=== PATIENT | male | born 1940 | race Caucasian/White ===

== ENCOUNTER 2019-08-09 08:50 | Day surgery (SDC) | payer MEDICARE ==
[2019-08-09] MEDS ORDERED: PROPOFOL 10 MG/ML VIAL IV ONE (08:51)
[2019-08-09] MEDS ORDERED: LIDOCAINE 2% MDV (20MG/ML) 20ML VIAL IV ONE (08:51)
--- NOTE | 2019-08-12 08:20 | Operative Note ---
OPERATION: COLONOSCOPY with cold snare and cold forceps polypectomy. PREOPERATIVE DIAGNOSIS: Personal history of colon cancer. POSTOPERATIVE DIAGNOSES: 1. Normal and healthy appearing anastomosis. 2. Sigmoid diverticulosis. 3. Colon polyps. PROCEDURE: After informed consent was obtained from the patient, he was placed in the left lateral decubitus position in the endoscopy suite, sedated and monitored by the department of anesthesia. Digital rectal exam was unremarkable. A well-lubricated CY600XN colonoscope was inserted into the rectum and advanced to the candace-cecum/ileocolonic anastomosis. The anastomosis appeared unremarkable. There were 2 visible nani. There was also a 6 mm sessile polyp just distal to the anastomosis. This was removed with a cold snare and retrieved with minimal bleeding noted. The remainder of what is remaining of the ascending colon was unremarkable. There was a diminutive transverse colon polyp removed with a cold forceps. Remainder of the transverse colon and descending colon were unremarkable. The sigmoid colon did demonstrate scattered diverticula as well as a 3-4 mm sessile polyp which was removed with a cold forceps. The remainder of the sigmoid colon was unremarkable. Forward and J-turn views of the rectum and anorectum were unrevealing. The endoscope was straightened, the rectal ampulla deflated, and the endoscope was removed. RECOMMENDATIONS: The patient should resume his medications and diet. He should follow a high-fiber diet if possible. I would recommend a repeat colonoscopy in 3 years should his health allow and his interest persists to continue to undergo surveillance. As always, thank you for allowing me to participate in the healthcare of your patients. SK[facility]
== END 2019-08-09 11:08 | disposition home or self-care (01) ==
LOC: HOP 08:50
PROVIDERS: ATTEND Internal Medicine Gastroenterology
DX: D12.2 Benign neoplasm of ascending colon (principal); D12.3 Benign neoplasm of transverse colon; K63.5 Polyp of colon; K57.30 Diverticulosis of large intestine without perforation or abscess without bleeding